=== PATIENT | female | born 1935 | race Caucasian/White ===

== ENCOUNTER 2017-01-24 11:49 | Emergency (ER) | payer MEDICARE ==
[~2017-01-24] VITALS: Ht 149.9 cm; Wt 75.0 kg
[2017-01-24 12:14] VITALS: BP 91/50; TEMP 96.4; O2SAT 100
[2017-01-24 12:18] VITALS: BP 117/66; PULSE 118; RESP 16; TEMP 96.4; O2SAT 98
--- NOTE | 2017-01-24 12:53 | PD ---
HPI Chief Complaint: Medical Clearance Time Seen by Provider: 12:53 Travel History International Travel<30 days: No Contact w/Intl Traveler<30days: No History of Present Illness HPI 81-year-old female with PMH of dementia presents to the ED from [facility] for psychiatric evaluation. On presentation the patient is alert to self, states that she is in "that center that my daughter brought me to" in [facility] and is unsure of the date. She denies suicidal or homicidal ideation. She denies headaches, fevers, chills, shortness of breath, cough, abdominal pain, nausea, vomiting, dysuria, back pain. She states "I am fine." PFS Social History Tobacco Use: No Allergies-Medications (Allergen,Severity, Reaction): Coded Allergies: No Known Allergies (Unverified , 01/24/17) Reported Meds & Prescriptions Reported Meds & Active Scripts Active Bactrim DS (Sulfamethoxazole-Trimethoprim) 800-160 Mg Tab 1 Tab PO BID Review of Systems Except as stated in HPI: all other systems reviewed are Neg Physical Exam Narrative GENERAL: Well-nourished, well-developed petite female in no acute distress. PSYCHIATRIC: Upbeat, interactive, pleasantly confused. SKIN: Focused skin assessment warm/dry. HEAD: Normocephalic. EYES: No scleral icterus. No injection or drainage. NECK: Supple, trachea midline. No JVD or lymphadenopathy. CARDIOVASCULAR: Regular rate and rhythm without murmurs, gallops, or rubs. 2+ DP and radial pulses bilaterally. RESPIRATORY: Breath sounds clear and equal bilaterally. No accessory muscle use. GASTROINTESTINAL: Abdomen soft, non-tender, nondistended. Active bowel sounds. MUSCULOSKELETAL: No cyanosis, or edema. Ambulatory with a normal gait, moves extremities spontaneously. BACK: Nontender without obvious deformity. No CVA tenderness. Data Data Last Documented VS Vital Signs Date Time Temp Pulse Resp B/P Pulse Ox O2 Delivery O2 Flow Rate FiO2 01/24/17 12:18 96.4 118 16 117/66 98 Orders Complete Blood Count With Diff (01/24/17 13:02) Comprehensive Metabolic Panel (01/24/17 13:02) Urinalysis - C+S If Indicated (01/24/17 13:02) Drug Screen, Random Urine (01/24/17 13:02) Alcohol (Ethanol) (01/24/17 13:02) Urine Culture (01/24/17 13:30) Sulfamet-Trimeth Ds 800-160 Mg (Bactrim (01/24/17 14:45) Ceftriaxone Inj (Rocephin Inj) (01/24/17 14:45) Labs Laboratory Tests Test 01/24/17 13:30 White Blood Count 9.3 TH/MM3 Red Blood Count 4.61 MIL/MM3 Hemoglobin 14.1 GM/DL Hematocrit 41.5 % Mean Corpuscular Volume 90.0 FL Mean Corpuscular Hemoglobin 30.6 PG Mean Corpuscular Hemoglobin 34.0 % Concent Red Cell Distribution Width 13.3 % Platelet Count 240 TH/MM3 Mean Platelet Volume 9.6 FL Neutrophils (%) (Auto) 62.9 % Lymphocytes (%) (Auto) 24.7 % Monocytes (%) (Auto) 10.7 % Eosinophils (%) (Auto) 1.1 % Basophils (%) (Auto) 0.6 % Neutrophils # (Auto) 5.9 TH/MM3 Lymphocytes # (Auto) 2.3 TH/MM3 Monocytes # (Auto) 1.0 TH/MM3 Eosinophils # (Auto) 0.1 TH/MM3 Basophils # (Auto) 0.1 TH/MM3 CBC Comment DIFF FINAL Differential Comment Urine Color YELLOW Urine Turbidity HAZY Urine pH 6.5 Urine Specific [place] 1.024 Urine Protein TRACE mg/dL Urine Glucose (UA) NEG mg/dL Urine Ketones 10 mg/dL Urine Occult Blood NEG Urine Nitrite NEG Urine Bilirubin NEG Urine Urobilinogen LESS THAN 2.0 MG/DL Urine Leukocyte Esterase LARGE Urine RBC 1 /hpf Urine WBC 10 /hpf Urine Squamous Epithelial 5 /hpf Cells Urine Bacteria OCC /hpf Urine Mucus FEW /lpf Microscopic Urinalysis Comment CULTURE INDICATED Sodium Level 137 MEQ/L Potassium Level 4.5 MEQ/L Chloride Level 104 MEQ/L Carbon Dioxide Level 24.2 MEQ/L Anion Gap 9 MEQ/L Blood Urea Nitrogen 17 MG/DL Creatinine 0.88 MG/DL Estimat Glomerular Filtration 62 ML/MIN Rate Random Glucose 120 MG/DL Calcium Level 8.8 MG/DL Total Bilirubin 1.1 MG/DL Aspartate Amino Transf 29 U/L (AST/SGOT) Alanine Aminotransferase 21 U/L (ALT/SGPT) Alkaline Phosphatase 77 U/L Total Protein 8.2 GM/DL Albumin 3.7 GM/DL Urine Opiates Screen NEG Urine Barbiturates Screen NEG Urine Amphetamines Screen NEG Urine Benzodiazepines Screen NEG Urine Cocaine Screen NEG Urine Cannabinoids Screen NEG Ethyl Alcohol Level LESS THAN 3 MG/DL MDM Medical Decision Making Medical Screen Exam Complete: Yes Emergency Medical Condition: Yes Differential Diagnosis Adjustment disorder versus anxiety versus bipolar versus depression versus dementia versus electrolyte disorder versus malingering versus mood disorder versus ODD versus psychosis versus PTSD versus schizophrenia versus schizoaffective disorder versus substance-induced mood disorder versus other Narrative Course 81-year-old female with PMH of dementia presents to the ED from [facility] for psychiatric evaluation. On presentation the patient is alert to self, states that she is in "that center that my daughter brought me to" in [facility] and is unsure of the date. She denies suicidal or homicidal ideation. She denies headaches, fevers, chills, shortness of breath, cough, abdominal pain, nausea, vomiting, dysuria, back pain. She states "I am fine." Vitals reviewed. Physical exam reveals a pleasantly confused female in no acute distress. Chest clear auscultation bilaterally, abdomen soft, nontender. No CVA tenderness. No edema of the lower extremities. Ambulatory with a normal gait. UA ketones and leukocyte esterase positive. CBC, CMP otherwise unremarkable. Tox screen negative. Patient was administered 1 g Rocephin IV. She is provided a prescription for Bactrim DS twice a day 7 days. She is medically cleared for psychiatric evaluation. See psychiatric note for disposition. Diagnosis Primary Impression: Urinary tract infection Qualified Code: N39.0 - Urinary tract infection without hematuria, site unspecified Additional Impression: Medical clearance for psychiatric admission Scripts Sulfamethoxazole-Trimethoprim (Bactrim DS)800-160 Mg Tab1 Tab PO BID #14 TAB Ref 0 Prov:Raymond Mcintyre MD 01/24/17 Anu Herrera Jan 24, 2017 12:53
[2017-01-24 13:57] LABS: AUTOMATED NEUTROPHIL # 5.9 TH/MM3 (1.8-7.7); BASOPHIL # 0.1 TH/MM3 (0-0.2); BASOPHIL % 0.6 % (0.0-2.0); EOSINOPHIL # 0.1 TH/MM3 (0-0.4); EOSINOPHIL % 1.1 % (0.0-4.0); HEMATOCRIT 41.5 % (35.0-46.0); HEMO FLAGS DIFF FINAL; LYMPH % 24.7 % (9.0-44.0); LYMPHOCYTE # 2.3 TH/MM3 (1.0-4.8); MEAN CORPUSCULAR HEMOGLOBIN 30.6 PG (27.0-34.0); MONO % 10.7 % (0.0-8.0); NEUT % 62.9 % (16.0-70.0); PLATELET COUNT 240 TH/MM3 (150-450); RED BLOOD COUNT 4.61 MIL/MM3 (4.00-5.30); RED CELL DISTRIBUTION WIDTH 13.3 % (11.6-17.2); WHITE BLOOD COUNT 9.3 TH/MM3 (4.0-11.0)
[2017-01-24 13:58] LABS: AMPHETAMINE, URINE NEG (NEG); BACTERIA, URINE OCC /hpf; BARBITURATES, URINE NEG (NEG); BLOOD, URINE NEG (NEG); COCAINE, URINE NEG (NEG); COMMENT (UR) CULTURE INDICATED; CULTURE IF INDICATED CULTURE INDICATED; GLUCOSE,URINE NEG (NEG); KETONE, URINE 10 mg/dL (NEG); MUCUS URINE FEW /lpf (OCC); NITRITE,URINE NEG (NEG); PH, URINE 6.5 (5.0-8.5); SQUAMOUS EPITHELIAL CELL URINE 5 /hpf (0-5); URINE COLOR YELLOW (YELLW/STRAW)
[2017-01-24 14:06] LABS: ALKALINE PHOSPHATASE 77 U/L (45-117); ALT (GPT) 21 U/L (10-53); TOTAL BILIRUBIN ADULT 1.1 MG/DL (0.2-1.0)
[2017-01-24 14:15] LABS: ANION GAP 9 MEQ/L (5-15); BICARBONATE 24.2 MEQ/L (21.0-32.0); BLOOD UREA NITROGEN 17 MG/DL (7-18); CHLORIDE 104 MEQ/L (98-107); GLOMERULAR FILTRATION RATE 62 ML/MIN (>89); SODIUM (NA) 137 MEQ/L (136-145)
[2017-01-24 14:22] LABS: AST (GOT) 29 U/L (15-37); POTASSIUM 4.5 MEQ/L (3.5-5.1)
[2017-01-24] MEDS ORDERED: BACT800T5 PO (14:41)
[2017-01-24] MEDS ORDERED: cefTRIAXone INJ 1,000 MG in SODIUM CHLORIDE 0.9% INJ 100 ML IV ONE (14:45)
[2017-01-24] MEDS ORDERED: SULFAMETHOXAZOLE-TRIMETHOPRIM DS 800-160 MG TAB PO ONE (14:45)
[2017-01-24 16:14] VITALS: BP 148/78; PULSE 89; RESP 18; TEMP 97.6; O2SAT 96
[2017-01-24] MEDS ORDERED: MEMA1TAB2 PO (16:28)
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
[2017-01-24] MEDS ORDERED: SERO25TA PO (17:09)
== END 2017-01-24 18:43 | disposition home or self-care (01) ==
LOC: NEPD 11:49 → NEPJ 18:43
DX: N39.0 Urinary tract infection, site not specified (principal); B96.89 Other specified bacterial agents as the cause of diseases classified elsewhere
CPT/HCPCS: 80053; 80307; 81001; 85025; 87086; 96374; 99284; J0696